=== PATIENT | female | born 1975 | race Caucasian/White ===

== ENCOUNTER 2021-11-07 14:52 | Emergency (ER) | payer OTHER ==
[2021-11-07 16:20] LABS: RED BLOOD COUNT 4.65 M/UL (4.00-5.10); WHITE BLOOD COUNT 7.9 K/UL (4.5-11.0)
[2021-11-07 16:47] LABS: BUN/CREATININE RATIO 12 (0-10)
[2021-11-07] MEDS ORDERED: MUPIROCIN22 GM TP (17:44)
[2021-11-07] MEDS ORDERED: CITRATE OF MAG296 ML PO (17:44)
== END 2021-11-07 18:02 | disposition home or self-care (01) ==
LOC: ER1 14:52
PROVIDERS: Physician Assistant
DX: K59.00 Constipation, unspecified (principal); L98.9 Disorder of the skin and subcutaneous tissue, unspecified; I10 Essential (primary) hypertension
CPT/HCPCS: 80053; 81001; 83690; 85025; 99284; Q9967